=== PATIENT | male | born 1980 | race Caucasian/White ===

== ENCOUNTER 2017-08-26 11:12 | Emergency (ER) | payer MEDICAID ==
[~2017-08-26] VITALS: Ht 182.9 cm; Wt 81.6 kg
[2017-08-26] MEDS ORDERED: BUPROPION XL300 MG ORAL (11:22)
[2017-08-26] MEDS ORDERED: SEROQUEL25 MG ORAL (11:22)
--- NOTE | 2017-08-26 12:41 | Emergency Room Report ---
History of Present Illness General Chief Complaint: Headache Source: Patient Present Illness HPI 29-year-old male p/w DELANEY for one days. Also with right foot Patient describes DELANEY as gradual in onset, throbbing in nature, localized to temporal temporal region, non-radiating, constant, 5/10 in severity. Slight photophobia, phonophobia. Patient states headache is very mild and he has had worse headaches than this Denies fever, chills, neck pain, blurry vision, motor/sensory weakness. Also complaining of right foot pain. No trauma. Worse with movement. However patient has been able to ambulate without any issue Allergies: Coded Allergies: No Known Allergies (Unverified , 08/26/17) Patient History Past Medical History: see triage record Past Surgical History: none Pertinent Family History: none Reviewed Nursing Documentation: PMH: Agreed, PSxH: Agreed Nursing Documentation-PMH Past Medical History: No History, Except For History Of Psychiatric Problem: Yes - anxiety Review of Systems All Other Systems: negative except mentioned in HPI Physical Exam Vital Signs Date Time Temp Pulse Resp B/P (MAP) Pulse Ox O2 Delivery O2 Flow Rate FiO2 08/26/17 11:18 98.2 105 18 143/91 98 Room Air Sp02 EP Interpretation: reviewed, normal General Appearance: normal inspection, well appearing, no apparent distress, alert, GCS 15, non-toxic Head: normocephalic, atraumatic Eyes: bilateral eye normal inspection, bilateral eye PERRL, bilateral eye EOMI ENT: normal ENT inspection, normal pharynx, normal voice, moist mucus membranes Neck: normal inspection, full range of motion, supple Respiratory: normal inspection, lungs clear, normal breath sounds, no respiratory distress, no retraction, no wheezing, speaking full sentences, chest symmetrical Cardiovascular #1: normal inspection, regular rate, rhythm, no edema, normal capillary refill Cardiovascular #2: 2+ radial (R), 2+ radial (L) Gastrointestinal: normal inspection, non tender, soft, non-distended, no guarding Genitourinary: no CVA tenderness Musculoskeletal: normal range of motion, other - Dorsum of right foot, with slight ecchymosis, no gross bony deformity, full range of motion, no fifth metatarsal tenderness Neurologic: normal inspection, alert, oriented x3, responsive, motor strength/ tone normal, sensory intact, normal gait, speech normal Psychiatric: normal inspection, judgement/insight normal, memory normal Skin: normal inspection, normal color, no rash, warm/dry, well hydrated, normal turgor Medical Decision Making Diagnostic Impression: Primary Impression: Foot pain Additional Impression: Headache ER Course 29-year-old male with headache and foot pain DDX: Primary DELANEY such as migraine, tension DELANEY, cluster. vs. dehydration Other serious diagnoses on differential such as intracranial bleed/sah, meningitis/encephalitis, tumor, however patients H&P is more consistent with benign etiology at this time. There are no neurological signs/symptoms/findings on physical exam and patient appears nontoxic. Plan: Performed for x-ray, Motrin ER course: Patient feels much better with meds. Patient continues to appear nontoxic, aox3, no neurologic symptoms. X-ray negative, patient is ambulatory Disposition: Patient will be discharged to home. Patient instructed to follow up with primary care doctor within 5 days. Patient instructed to followup with orthopedic surgery if he continues to have severe foot pain despite Motrin Strict return precautions discussed with patient such as severe/worsening headache, nausea, vomiting, fever chills, neck pain. Patient verbalized understanding. Please note that this Emergency Department Report was dictated using [employer] technology software, occasionally this can lead to erroneous entry secondary to interpretation by the dictation equipment. Xray: Right foot 3 view Indication: Pain EP Interpretation: Yes Interpretation: No dislocation, no soft tissue swelling, no fractures Impression: No acute disease Electronically signed by Diana Reyes MD Last Vital Signs Date Time Temp Pulse Resp B/P (MAP) Pulse Ox O2 Delivery O2 Flow Rate FiO2 08/26/17 11:18 98.2 105 18 143/91 98 Room Air Disposition: HOME, SELF-CARE Condition: Improved Patient Instructions: General Headache Without Cause, Foot Contusion Additional Instructions: Please followup with your doctor in 5 days Please followup with an orthopedic surgeon if you're continuing to have a worsening foot pain Otherwise please take Motrin 600 mg every 8 hours for your pain Please return to the emergency room if you're experiencing worsening headache, weakness of the arms or legs, numbness, intractable nausea or vomiting Diana Reyes M.D. Aug 26, 2017 12:41
[2017-08-26 12:46] VITALS: BP 133/88
--- NOTE | 2017-08-26 16:53 | Diagnostic Imaging Report ---
Indication: PAIN Technique: 3 views right foot Comparison: none Findings: There is hallux valgus and metatarsus adductus there are no acute fractures. No dislocations. Joint spaces are preserved Impression: Negative
== END 2017-08-26 12:48 | disposition home or self-care (01) ==
LOC: EMR 12:16
DX: M79.671 Pain in right foot (principal); R51 Headache; F41.9 Anxiety disorder, unspecified
CPT/HCPCS: 99283